=== PATIENT | female | born 1965 | race Two or more races ===

== ENCOUNTER 2017-02-13 08:18 | Emergency (ER) | payer OTHER ==
[2017-02-13 08:24] VITALS: BP 123/91; PULSE 88; RESP 16; TEMP 97.7; O2SAT 97
--- NOTE | 2017-02-13 08:47 | EDPHY ---
HPI/HX/ROS/PE/MDM Narrative: CHIEF COMPLAINT: Scalp laceration HPI: This patient is a non-anticoagulated 51 year old female presenting with a laceration to the back of her head following a mechanical fall shortly prior to arrival. She arrived early at work this morning and was rushing around in the kitchen. She was wearing wedge heels and stepped back in a tight area and fell back into a sharp corner. She felt dazed but denies loss of consciousness and remembers the entire incident. She noticed that she was bleeding right away and presents for evaluation. No other trauma or complaints. REVIEW OF SYSTEMS: Aside from elements discussed in the HPI, a comprehensive 10-point review of systems was reviewed and is negative. PMH: Diabetes type II SOCIAL HISTORY: at bedside. Works as medical advertising account representative. PHYSICAL EXAM: General:Patient is alert, in no acute distress. Head: 9cm linear laceration to scalp over occiput. ENT:Eyes are normal to inspection. ENT inspection normal. Neck: Normal inspection. Full range of motion. Respiratory:No respiratory distress. Breath sounds normal bilaterally. Cardiovascular: Regular rate and rhythm. Strong peripheral pulses. Normal cap refill. Abdomen:The abdomen is nontender to palpation. Back: Normal to inspection. No tenderness to palpation. Skin: Normal color. No rash. Warm and dry. Extremities: Normal appearance. Full range of motion. Neuro: Oriented x3. Normal motor function. Normal sensory function. ED Course: Procedure: Laceration repair. Verbal consent was obtained from the patient. The linear 9cm laceration on the occiput was anesthetized using 1% lidocaine with epinephrine. The wound was cleaned with standard ED protocol, draped and explored to its base with a gloved finger. The wound was repaired in single layer technique with one long running 3-0 Prolene suture. The wound repair was simple. The procedure was performed by myself, Dr. Middleton. 51 year old female presents with 9cm laceration to the occiput sustained during a mechanical fall. No loss of consciousness. Plan to repair laceration. See procedure note above. The patient tolerated the procedure well. She will be discharged home in good condition. She will return in 7 days for suture removal. Follow up and return precautions discussed. The patient is comfortable with this plan. MDM: This patient presents with a scalp laceration that was easily repaired. I see no evidence of intracranial injury and do not think a CTH is indicated. General Time Seen by Provider: 02/13/17 08:33 Initial Vital Signs: Initial Vital Signs Temperature (C) 36.5 C 02/13/17 08:22 Heart Rate 88 02/13/17 08:22 Respiratory Rate 16 02/13/17 08:22 Blood Pressure 123/91 H 02/13/17 08:22 O2 Sat (%) 97 02/13/17 08:22 O2 Delivery Mode Room Air Allergies/Adverse Reactions: No Known Allergies Allergy (Unverified 02/13/17 08:21) Home Medications: Medication Instructions Recorded Lisinopril 02/13/17 Metformin 1000 mg 02/13/17 Prozac 10 MG (*) 02/13/17 Departure - Departure Disposition: Home, Routine, Self-Care Clinical Impression: Occipital scalp laceration Condition: Good Instructions: Care For Your Stitches (ED), Laceration (ED) Additional Instructions: 1. Sutures out in 7 days. 2. Follow up with your primary care provider for continued concerns. 3. Return to the Emergency Department for fever, redness, discharge from wound, increasing pain or other worsening of condition. Referrals: Elenita Macias MD [Medical Doctor] - As per Instructions Report Scribed for: Hunter Middleton Report Scribed by: Chrystal Rivas Date of Report: 02/13/17 Time of Report: 08:54 Physician Review and Approval Statement: Portions of this note were transcribed by an ED scribe. I personally performed the history, physical exam, and medical decision making; and confirm the accuracy of the information in the transcribed note.
== END 2017-02-13 09:35 | disposition home or self-care (01) ==
PROC: 0HQ0XZZ Repair Scalp Skin, External Approach (ICD-10-PCS; principal; 2017-02-13)
DX: S01.01XA Laceration without foreign body of scalp, initial encounter (principal); E11.9 Type 2 diabetes mellitus without complications; Z79.84 Long term (current) use of oral hypoglycemic drugs; W01.0XXA Fall on same level from slipping, tripping and stumbling without subsequent striking against object, initial encounter; Y92.000 Kitchen of unspecified non-institutional (private) residence as the place of occurrence of the external cause

== ENCOUNTER → 2018-06-01 | Outpatient (CLI) | payer OTHER ==
[~2018-06-01] MED LIST: IOPAMIDOL (ISOVUE-300) 100 ML BTL ONE
== END ==
LOC: CIMAGING 14:57
PROVIDERS: ATTEND Physician Assistant
DX: K57.30 Diverticulosis of large intestine without perforation or abscess without bleeding (principal); K57.32 Diverticulitis of large intestine without perforation or abscess without bleeding; Z98.84 Bariatric surgery status
CPT/HCPCS: 74177-PO; 82565-PO; Q9967